=== PATIENT | male | born 1995 | race Two or more races ===

== ENCOUNTER 2021-07-13 00:02 | Emergency (ER) | payer OTHER ==
[~2021-07-13] VITALS: Ht 172.7 cm; Wt 65.8 kg
== END 2021-07-13 09:09 | disposition home or self-care (01) ==
LOC: ER 00:02
DX: N39.0 Urinary tract infection, site not specified (principal); B96.20 Unspecified Escherichia coli [E. coli] as the cause of diseases classified elsewhere; B96.89 Other specified bacterial agents as the cause of diseases classified elsewhere; R31.9 Hematuria, unspecified; R30.0 Dysuria; Z20.822 Contact with and (suspected) exposure to COVID-19